=== PATIENT | female | born 1940 | race Caucasian/White ===

== ENCOUNTER 2016-11-22 14:22 | Emergency (ER) | payer MEDICARE, OTHER ==
[~2016-11-22] VITALS: Ht 162.6 cm; Wt 49.1 kg
[2016-11-22 14:23] VITALS: TEMP 98.5
[2016-11-22] MEDS ORDERED: SEROQUEL50 MG PO (15:10)
[2016-11-22] MEDS ORDERED: NEURONTIN100 MG/CAP PO (15:10)
[2016-11-22] MEDS ORDERED: ATIVAN 0.50.5 MG/TAB PO (15:11)
[2016-11-22 15:40] LABS: BASO % 0.5 % (0.0-2.0); EOS # 0.1 (0.0-0.7); EOS % 0.9 % (0-4.0); GRAN # 4.1 (1.4-6.5); GRAN % 73.4 % (42.2-75.2); HEMATOCRIT 38.7 % (37.0-47.0); HEMOGLOBIN 12.9 g/dl (12.5-16.0); LYMPH # 1.1 (1.2-3.4); LYMPH % 19.7 % (20.0-51.0); MEAN CELL VOLUME 88 fl (80.0-100.0); MEAN CORPUSCULAR HEMOGLOBIN 30 pg (27.0-31.0); MEAN CORPUSCULAR HGB CONC 33 g/dl (33.0-37.0); MEAN PLATELET VOLUME 9.1 fl (7.4-10.4); MONO # 0.3 (0.1-0.6); MONO % 5.1 % (1.7-9.3); PLATELET COUNT 224 K/mm3 (130-400); RED BLOOD COUNT 4.38 M/mm3 (4.10-5.30); REDCELL DISTRIBUTION WIDTH-CV 12.7 % (11.5-14.5); WHITE BLOOD COUNT 5.5 K/mm3 (4.8-10.8)
[2016-11-22 15:44] LABS: PH 7 (5-8); SQUAMOUS EPITHELIAL 0-2 /hpf; URINE APPEARANCE Clear; URINE BACTERIA None Seen /hpf; URINE BILIRUBIN Negative (NEGATIVE); URINE BLOOD Negative (NEGATIVE); URINE COLOR Straw; URINE GLUCOSE Negative (NEGATIVE); URINE KETONE Negative (NEGATIVE); URINE RBC None Seen /hpf; URINE UROBILINOGEN Negative (NEGATIVE); URINE WBC 0-2 /hpf
[2016-11-22 15:52] LABS: ALBUMIN 4.2 gm/dL (3.5-5.0); BILIRUBIN,TOTAL 0.4 mg/dL (0.0-1.0); CALCIUM 9.2 mg/dL (8.4-10.2); CREATININE, serum 0.56 mg/dL (0.52-1.25); POTASSIUM 4.2 mmol/L (3.4-5.0); TOTAL PROTEIN 7.3 gm/dL (6.4-8.2)
[2016-11-22] MEDS ORDERED: COGENTIN 1MG1 MG/TAB PO (16:40)
[2016-11-22 17:34] VITALS: BP 126/85; PULSE 84
== END 2016-11-22 17:37 | disposition home or self-care (01) ==
LOC: COL.ER 14:22
PROVIDERS: Emergency Medicine
DX: F41.9 Anxiety disorder, unspecified (principal); R47.1 Dysarthria and anarthria; F32.9 Major depressive disorder, single episode, unspecified
CPT/HCPCS: J7030

== ENCOUNTER 2016-12-21 08:21 | Emergency (ER) | payer MEDICARE, OTHER ==
[~2016-12-21] VITALS: Ht 162.6 cm; Wt 49.1 kg
[~2016-12-21 08:21] MED LIST: ATIVAN 0.50.5 MG/TAB PO; COGENTIN 1MG1 MG/TAB PO; NEURONTIN100 MG/CAP PO; SEROQUEL50 MG PO
[2016-12-21 08:25] VITALS: TEMP 97.1
[2016-12-21 09:07] LABS: BASO % 0.8 % (0.0-2.0); EOS # 0.1 (0.0-0.7); EOS % 1.9 % (0-4.0); HEMATOCRIT 39.3 % (37.0-47.0); HEMOGLOBIN 13.3 g/dl (12.5-16.0); LYMPH # 1.4 (1.2-3.4); LYMPH % 36.7 % (20.0-51.0); MEAN CELL VOLUME 88 fl (80.0-100.0); MEAN CORPUSCULAR HEMOGLOBIN 30 pg (27.0-31.0); MEAN CORPUSCULAR HGB CONC 34 g/dl (33.0-37.0); MEAN PLATELET VOLUME 8.7 fl (7.4-10.4); MONO # 0.3 (0.1-0.6); MONO % 7.3 % (1.7-9.3); PLATELET COUNT 230 K/mm3 (130-400); RED BLOOD COUNT 4.48 M/mm3 (4.10-5.30); REDCELL DISTRIBUTION WIDTH-CV 12.6 % (11.5-14.5); WHITE BLOOD COUNT 3.7 K/mm3 (4.8-10.8)
[2016-12-21 09:33] LABS: ADJUSTED CALCIUM 9.2 mg/dL (8.4-10.2); ALBUMIN 4.2 gm/dL (3.5-5.0); BILIRUBIN,TOTAL 0.7 mg/dL (0.0-1.0); CALCIUM 9.4 mg/dL (8.4-10.2); CREATININE, serum 0.54 mg/dL (0.52-1.25); POTASSIUM 4.2 mmol/L (3.4-5.0); TOTAL PROTEIN 7.1 gm/dL (6.4-8.2)
[2016-12-21 11:11] VITALS: BP 108/67; PULSE 77
[2016-12-21] MEDS ORDERED: VISTARIL 2525 MG/CAP PO (11:20)
[2016-12-21] MEDS ORDERED: KLONOPIN 1MG1 MG PO (11:21)
[2016-12-21] MEDS ORDERED: REMERON 15M15 MG/TA1 PO (11:21)
== END 2016-12-21 11:19 | disposition home or self-care (01) ==
LOC: COL.ER 08:21
PROVIDERS: Emergency Medicine
DX: F41.1 Generalized anxiety disorder (principal); Z90.49 Acquired absence of other specified parts of digestive tract
CPT/HCPCS: J2060; J7040

== ENCOUNTER → 2018-02-21 | Outpatient (REF) ==
[~2018-02-21] MED LIST changes: +KLONOPIN 1MG1 MG PO; +REMERON 15M15 MG/TA1 PO; +VISTARIL 2525 MG/CAP PO
== END ==
LOC: ZLAB.WCH 18:26
DX: Z01.89 Encounter for other specified special examinations (principal)

== ENCOUNTER → 2019-10-25 | Outpatient (CLI) | payer MEDICARE, OTHER | LOC: BHSO 12:28 | DX: F33.3 Major depressive disorder, recurrent, severe with psychotic symptoms (principal) ==

== ENCOUNTER → 2019-11-23 | Outpatient (CLI) | payer MEDICARE, OTHER | LOC: BHSO 13:21 | DX: F25.8 Other schizoaffective disorders (principal) | CPT/HCPCS: G0463 ==

== ENCOUNTER 2021-08-25 05:28 | Day surgery (SDC) | payer MEDICARE, OTHER ==
[~2021-08-25] VITALS: Ht 162.6 cm; Wt 90.9 kg
[2021-08-25] VITALS (16 sets, daily range): BP systolic 116–182; BP diastolic 46–85; PULSE 73–88; TEMP 97–98.7
[2021-08-25] MEDS ORDERED: [UNRECOGNIZED DRUG - OTHER] PO (05:48)
--- NOTE | 2021-08-25 10:42 | NUR ---
Pt to floor from PACU. report from Flavia RN at 1015 at bedside. Pt arrives resting supine with hob 30deg. pt is alert and oriented, pwd with reg and unlabored respirations. LR infusing at approx 100 cc/hour to 18g iv in left hand. Pt c/o pain to mid abdomen. difficult to rate pain on 0-10 scale, but pt does accept offer of ordered oxycodone. Pt and updated on poc including SCDs, incentive spirometry, available medications for pain and nausea, liquid diet order... Also oriented pt and to room, call light.
--- NOTE | 2021-08-25 14:47 | NUR ---
Pt has been recovering well. Pt was able to sit up at edge of bed with minimal assistance, stand at bs and ambulate in room with steady gait. Pt settled into recliner, eating from full liquid diet. pt has been belching especially after getting up, bt active. no complaints of pain at this time.
--- NOTE | 2021-08-25 16:21 | NUR ---
PT back to bed at this time, able to transfer from wheelchair independently. Pt reports mild abd pain 2-4/10, states is tolerable at this time. SCD's on bilat. Pt looking over menu for dinner options. pt encouraged to perform incentive spirometry and demonstrated use of spirometer. Pt informed she should be doing this every hour.
--- NOTE | 2021-08-25 17:18 | NUR ---
pt resting comfortably in bed at this time. SCDs are on bilat. Pt was given opportunity to brush teeth, dinner has been ordered. bs report given to Zora DARLING.
--- NOTE | 2021-08-25 17:22 | NUR ---
bedside report received from LISSET Montes
[2021-08-25] MEDS ORDERED: digestive enzymes PO (17:23)
--- NOTE | 2021-08-25 18:26 | NUR ---
had supper tolerated well, medicated with scheduled tylenol and toradol
--- NOTE | 2021-08-25 18:50 | NUR ---
bedside shift report given to LISSET Thibodeaux
[2021-08-26 00:30] VITALS: BP 146/67; PULSE 85; TEMP 98.5
--- NOTE | 2021-08-26 03:23 | NUR ---
Pt has had an uneventful shift. Tolerating PO meds well. Pt has no complaints of pain abd has been resting quietly in bed for a majority of the shift. Pt was up once with PCT and ambulated throughout the unit, gait was steady and pt showed no signs of weakness. All other needs met at this time, call light within reach.
[2021-08-26 04:14] VITALS: BP 150/77; PULSE 98; TEMP 98
--- NOTE | 2021-08-26 07:34 | NUR ---
Pt doing okay this morning. Dr Ahmadi has been in to see pt. Pt appears to be sleepy, not very talkative. Trimble catheter removed per order and INT IV fluids. Pt reports that she cannot rate her pain as she hardly has any. Educated pt on the plan for the day. Instructed her to ring call light when she needs to use the restroom and that we would have her get up and ambulate in the halls this morning. Offered to order breakfast, but pt states that she is not hungry. Call light within reach, will continue to monitor
[2021-08-26 07:45] VITALS: BP 146/67; PULSE 78; TEMP 97.3
--- NOTE | 2021-08-26 09:30 | NUR ---
Went in to check on pt. Pt continues to state that she is not hungry and does not have any complaints of any pain. Asked pt about using the restroom and then stated I would assist her to go for a walk. Assisted pt in to the bathroom in which she did void without difficulty. Pt then stated that she was going to go back to bed. Reminded her that I was going to have her go for a walk in the terry. Walked with her and tried to make conversation with her. Pt continues with short answers, Yes and No if possible. Asked her if she lives around here and she stated no. Then asked her where she lived. Pt stated [place], [place]. I was unaware of her place of residence. Asked if her stayed in a hotel and she then stated no. Asked who brought her for surgery and she stated . I asked if she had family in town that he stayed with and again stated no. Guided pt on the walk in which she did well. Once she was back in her room, she started to lift up her left leg to get in to bed before sitting down and almost fell. Asked pt if she was feeling okay and again, only said "yes". Pt demographics show that she lives in [place], [place]
--- NOTE | 2021-08-26 10:53 | NUR ---
[place]: Shinto Situation: Lumber Racker stopped by on rounds Background: PT was sleepy and resting Assessment: PT prayed the rosary with the leadership program intern Recommendation: leadership program intern will follow up as needed
[2021-08-26 12:00] VITALS: BP 129/63; PULSE 77; TEMP 97.8
--- NOTE | 2021-08-26 12:56 | NUR ---
caisson worker met with patient to complete intake and discuss discharge plan. Patient's Stephanie ([phone]) present at bedside. Patient reports that she lives at home with her in [facility]. She is mostly independent with her ADL's but does endorse that her helps with things like showering and getting dressed. Patient denies any use of DME to assist with mobility. She has no home oxygen needs. PCP is and she utilizes [facility] pharmacy for medications with no cost difficulty. Patient does have a DPOA-HC established listing her as her agent. A copy can be found in her EMR. Patient is planning on returning home with her once medically ready. Discharge plan: Home with spouse
--- NOTE | 2021-08-26 15:52 | NUR ---
Reviewed discharge instructions with pt and her . Discussed activity restrictions as well as pain management and incisional care. INT removed from left wrist. Pt did go to the restroom right away and IV site did start bleeding. Stopped bleeding and new gauze dressing applied. PCT in with pt to assist with getting her dressed.
== END 2021-08-26 16:14 | disposition home or self-care (01) ==
LOC: SDCO 05:28 → SURG 10:15 → SDCO 08-26 16:14
DX: N99.3 Prolapse of vaginal vault after hysterectomy (principal); F32.A Depression, unspecified; Z86.16 Personal history of COVID-19; Z28.310 Unvaccinated for COVID-19; Z28.9 Immunization not carried out for unspecified reason
CPT/HCPCS: OP; A4314; A9284; C1781; J0330; J0690; J1100; J1885; J2270; J2405; J2704; J3010; J7120

== ENCOUNTER 2021-11-07 17:48 | Inpatient (IN) | payer MEDICARE, OTHER ==
[~2021-11-07] VITALS: Ht 165.1 cm; Wt 92.1 kg
[~2021-11-07 17:48] MED LIST changes: +[UNRECOGNIZED DRUG - OTHER] PO; +digestive enzymes PO
[2021-11-07 19:47] LABS: BASO # 0.1 K/mm3 (0.0-0.2); BASO % 0.5 % (0.0-2.0); EOS % 0.4 % (0.0-4.0); GRAN % 85.3 % (42.2-75.2); HEMATOCRIT 37.2 % (37.0-47.0); HEMOGLOBIN 12.5 g/dl (12.5-16.0); LYMPH # 0.7 K/mm3 (1.2-3.4); LYMPH % 7.5 % (20.0-51.0); MEAN CELL VOLUME 88 fl (80.0-100.0); MEAN CORPUSCULAR HEMOGLOBIN 30 pg (27-31); MEAN CORPUSCULAR HGB CONC 34 g/dl (33.0-37.0); MONO # 0.6 K/mm3 (0.1-0.6); MONO % 5.9 % (1.7-9.3); PLATELET COUNT 279 K/mm3 (130-400); RED BLOOD COUNT 4.23 M/mm3 (4.10-5.30); REDCELL DISTRIBUTION WIDTH-CV 12.9 % (11.5-14.5)
[2021-11-07 20:05] LABS: ALANINE AMINOTRANSFERASE 26 U/L (0-55); ALBUMIN 3.7 gm/dL (3.4-4.8); ALKALINE PHOSPHATASE 69 U/L (40-150); AST,SGOT 27 U/L (5-34); BILIRUBIN,TOTAL 0.4 mg/dL (0.2-1.2); BLOOD UREA NITROGEN 12 mg/dL (10-20); CALCIUM 9.3 mg/dL (8.4-10.2); CARBON DIOXIDE 21 mmol/L (23-31); CREATININE, serum 0.67 mg/dL (0.57-1.11); GLUCOSE 120 mg/dL (70-99); TOTAL PROTEIN 6.8 gm/dL (6.2-8.1)
[2021-11-07 20:11] LABS: CHLORIDE 99 mmol/L (98-107); POTASSIUM 3.9 mmol/L (3.5-4.5); SODIUM 132 mmol/L (136-145)
[2021-11-07 20:14] LABS: COLLECTION METHOD IN
[2021-11-07 20:21] LABS: INR 1.1 (0.8-3.0); PROTHROMBIN TIME 12.6 SECONDS (9.7-12.8)
[2021-11-07 20:24] LABS: PH 6 (5-8); SQUAMOUS EPITHELIAL 0-2 /hpf (0-10); URINE APPEARANCE Hazy (CLEAR/HAZY); URINE BACTERIA Rare /hpf (NONE SEEN); URINE BLOOD Negative (NEGATIVE); URINE COLOR Yellow (YELLOW); URINE GLUCOSE Negative (NEGATIVE); URINE KETONE Trace (NEGATIVE); URINE NITRATE Positive (NEGATIVE); URINE PROTEIN(semi-quant) Negative (NEGATIVE); URINE UROBILINOGEN Negative (NEGATIVE)
[2021-11-07 20:33] LABS: ANION GAP 14 mmol/L (7-16)
[2021-11-07 21:35] LABS: TROPONIN-I < 0.010 ng/mL (0.00-0.033)
[2021-11-07 22:00] VITALS: BP 140/59; PULSE 91; TEMP 98.5
--- NOTE | 2021-11-07 23:34 | NUR ---
PT ADMIT TO FLOOR FOR LT HIP- FX. AOX3. FORGETFUL AND WILL REPEAT SELF. C/O PAIN BUT DOES NOT WANT TO TAKE PAIN MED UPON ARRIVAL. ONCE SITUATED CALM AND ATE MEAL. NPO AT 12 FOR SURG IN AM. 0800- CONSENTED. ICE TO HIP. CALL LIGHT WI REACH. ROOM ORIENTATION.
[2021-11-08] VITALS (13 sets, daily range): BP systolic 114–142; BP diastolic 44–77; PULSE 53–93; TEMP 97.4–98.7
[2021-11-08 06:26] LABS: BASO % 0.3 % (0.0-2.0); EOS % 0.1 % (0.0-4.0); GRAN # 6.2 K/mm3 (1.4-6.5); GRAN % 81.2 % (42.2-75.2); HEMOGLOBIN 10.9 g/dl (12.5-16.0); LYMPH # 0.9 K/mm3 (1.2-3.4); LYMPH % 11.6 % (20.0-51.0); MEAN CELL VOLUME 90 fl (80.0-100.0); MEAN CORPUSCULAR HEMOGLOBIN 30 pg (27-31); MEAN CORPUSCULAR HGB CONC 33 g/dl (33.0-37.0); MEAN PLATELET VOLUME 9.7 fl (7.4-10.4); MONO # 0.5 K/mm3 (0.1-0.6); MONO % 6.4 % (1.7-9.3); PLATELET COUNT 256 K/mm3 (130-400); RED BLOOD COUNT 3.69 M/mm3 (4.10-5.30); REDCELL DISTRIBUTION WIDTH-CV 12.9 % (11.5-14.5)
[2021-11-08 06:37] LABS: HEMATOCRIT 33.2 % (37.0-47.0)
--- NOTE | 2021-11-08 07:36 | NUR ---
PATIENT ALERT TO SELF. VSS. PATIENT REPORTS PAIN 10/10, REFUSES PAIN MEDICATION. ICE TO LEFT HIP. ASSESSMENT PERFORMED. CALL LIGHT WITHIN REACH.
--- NOTE | 2021-11-08 07:36 | NUR ---
PATIENT OFF OF FLOOR FOR SURGERY
--- NOTE | 2021-11-08 11:07 | NUR ---
10:38: Chief School Finance Officer notes patient has just returned to room from surgery and nursing at bedside. Chief School Finance Officer holding for intake assessment/discharge planning for surgical recovery. Will re-assess.
--- NOTE | 2021-11-08 15:02 | NUR ---
PATIENT OFFERED PAIN MEDICATION, TYLENOL AND OTHER MEDICATIONS LISTED. PATIENT REFUSED FOR FEAR OF ADDICTION TO MEDS.
--- NOTE | 2021-11-09 00:10 | NUR ---
PATIENT IN BED. ALERT AND PARTIALLY ORIENTED. SOME CONFUSION NOTED DURING CONVERSATION. L HIP X3 SITES CDI WITH GAUZE AND TEGADERM. PATIENT STATES SHE HAS MILD PAIN BUT DENIES ALL PAIN MEDICAITON OFFERED. MADDEN TO DD WITH CLEAR YELLOW OUTPUT. ICE REMAINS IN PLACE TO L HIP. IVF INFUSING WITH INT ABX ORDERED. PATIENT STATED SHE NEEDED TO HAVE BM AND WANTED TO GET TO THE COMMODE, X2 ASSIST TO BEDSIDE COMMODE AND PATIENT PASSED SOME GAS. PATIENT ASSISTED BACK TO BED WITH X2 ASSIST AND AGAIN WAS DENYING PAIN MEDICATION.
[2021-11-09 03:28] VITALS: BP 134/55; PULSE 84; TEMP 97.8
[2021-11-09 07:11] LABS: HEMATOCRIT 27.4 % (37.0-47.0); HEMOGLOBIN 9.1 g/dl (12.5-16.0)
[2021-11-09 07:29] LABS: CALCIUM 8.1 mg/dL (8.4-10.2); CREATININE, serum 0.58 mg/dL (0.57-1.11); POTASSIUM 4.2 mmol/L (3.5-4.5)
[2021-11-09 08:00] VITALS: BP 125/60; PULSE 76; TEMP 98.3
--- NOTE | 2021-11-09 08:08 | NUR ---
PT RESTING IN BED. DR NORMAN IN TO SEE PT PLAN ON PLACEMENT AFTER THERAPY WORKS WITH PATIENT THIS AM. PT LIVES AT HOME WITH PER PT REPORT.
--- NOTE | 2021-11-09 10:41 | NUR ---
Initial visit; Firearms Instructor introduced herself and wished patient well while letting her know of the availability of Spiritual Care. Patient declined but was very kind.
--- NOTE | 2021-11-09 11:27 | NUR ---
billet worker met with patient to complete intake and discuss discharge plan. Patient reports that she lives at home in [facility] with her Stephanie ([phone]). She is independent with her ADL's and does not utilize any DME to assist with mobility. Patient does not have any home oxygen needs. PCP is Dr. Springer and she utilizes [facility] pharmacy for prescriptions. Patient states that she "thinks" she has a DPOA-HC established listing her as her agent. SW spoke with the patient about the need for post acute rehab. Patient verbalized that she doesn't want to go into a ch[facility] because "they have covid". SW discussed [facility] vs. [facility]. Patient's first choice would be [facility] and [facility] second. Referrals placed for both [facility] and [facility]. Discharge plan: [facility] vs. [facility]
[2021-11-09 12:00] VITALS: BP 145/46; PULSE 84; TEMP 98.3
[2021-11-09] MEDS ORDERED: VITAMIN C500 MG PO (16:50)
[2021-11-09] MEDS ORDERED: OSCAL 500 TAB500 MG PO (16:50)
[2021-11-09] MEDS ORDERED: DUO-KAPS1 CAP PO (16:50)
[2021-11-09] MEDS ORDERED: ASPI325T6 PO (16:50)
[2021-11-09] MEDS ORDERED: TYLENOL 500MG500 MG PO (16:52)
[2021-11-09] MEDS ORDERED: CEFTIN 250250 MG/TAB PO (16:52)
[2021-11-09 17:22] VITALS: BP 136/52; PULSE 81; TEMP 98.2
[2021-11-09 19:40] VITALS: BP 124/50; PULSE 79; TEMP 99.2
--- NOTE | 2021-11-09 22:00 | NUR ---
PT INCONTINENT OF LARGE AMOUNT OF URINE, REORIENTED TO CALL LIGHT. LINENS CHANGED AND ANA LILIA CARES GIVEN. ENCOURAGED PT TO TAKE SCHEDULED ES TYLENOL FOR LEFT HIP PAIN, PT TURNS SIDE TO SIDE GROANING IN PAIN. LEFT HIP WITH 3 SMALL INCISIONS D/I. PLACED SCDS ON PT. TAKES HS MEDS INCLUDING TYLENOL.
[2021-11-09 23:48] VITALS: BP 121/53; PULSE 78; TEMP 98.5
[2021-11-10 03:40] VITALS: BP 123/62; PULSE 80; TEMP 98.1
--- NOTE | 2021-11-10 04:56 | NUR ---
PT HAS BEEN USING BEDPAN THIS SHIFT, NO FURTHER INCONTINENT EPISODES.
[2021-11-10 06:36] LABS: HEMATOCRIT 27.4 % (37.0-47.0); HEMOGLOBIN 8.8 g/dl (12.5-16.0)
[2021-11-10 07:05] VITALS: BP 143/66; PULSE 86; TEMP 98.1
--- NOTE | 2021-11-10 08:00 | NUR ---
PT A&OX3 RESTING IN BED. AM MEDS GIVEN AND ASSESSMENT COMPLETED. PT DENIES PAIN. SCDS T0 BLE. VS STABLE AND TELE IN PLACE. BREAKFAST AT SIDE TABLE AND PT REFUSING TO EAT. NO OTHER NEEDS AT THIS TIME. CALL LIGHT WITHIN REACH.
--- NOTE | 2021-11-10 08:27 | NUR ---
Notified by Nicky with [facility] that they accept this patient for admission today
--- NOTE | 2021-11-10 09:41 | NUR ---
Notified patient of acceptance to [facility] and that the transition will happen later on today.
--- NOTE | 2021-11-10 10:00 | NUR ---
LT HIP TEGADERM DRESSING REMOVED PER PA REQUEST. INCISIONS ARE CDI. PT DENIES PN.
--- NOTE | 2021-11-10 10:22 | NUR ---
PT TRANSFERED TO [facility] ROOM 336. RT AC INT AND TELE DISCONTINUED.
[2021-11-10] MEDS ORDERED: CELEBREX 200MG200 MG PO (10:37)
[2021-11-10] MEDS ORDERED: SENOKOT S 50 MG1 TAB PO (10:39)
[2021-11-10] MEDS ORDERED: ROXICODONE 55 MG/TAB PO (10:40)
[2021-11-10] MEDS ORDERED: ULTRAM 50MG TAB50 MG PO (10:40)
[2021-11-10] MEDS ORDERED: MELATIN 3 MG-11 TAB PO (10:41)
== END 2021-11-10 10:20 | DRG 481 ==
LOC: COL.ER 17:48 → SURG 20:23
PROVIDERS: Nurse Practitioner; Nurse Practitioner Family; Orthopaedic Surgery; Physician Assistant; ADMIT Student in an Organized Health Care Education/Training Program
PROC: 0QS706Z Reposition Left Upper Femur with Intramedullary Internal Fixation Device, Open Approach (ICD-10-PCS; principal; 2021-11-08 08:00)
DX: S72.142A Displaced intertrochanteric fracture of left femur, initial encounter for closed fracture (principal); E87.1 Hypo-osmolality and hyponatremia; N39.0 Urinary tract infection, site not specified; E87.2 Acidosis; K62.5 Hemorrhage of anus and rectum; Z66 Do not resuscitate; W01.0XXA Fall on same level from slipping, tripping and stumbling without subsequent striking against object, initial encounter; R19.7 Diarrhea, unspecified; F03.90 Unspecified dementia, unspecified severity, without behavioral disturbance, psychotic disturbance, mood disturbance, and anxiety; F41.9 Anxiety disorder, unspecified; F32.A Depression, unspecified; B96.20 Unspecified Escherichia coli [E. coli] as the cause of diseases classified elsewhere; K44.9 Diaphragmatic hernia without obstruction or gangrene; R73.9 Hyperglycemia, unspecified; Z90.710 Acquired absence of both cervix and uterus; Z91.51 Personal history of suicidal behavior; Z90.49 Acquired absence of other specified parts of digestive tract; Z72.89 Other problems related to lifestyle; Y92.096 Garden or yard of other non-institutional residence as the place of occurrence of the external cause; Y93.89 Activity, other specified
CPT/HCPCS: A4314; A9284; C1713; C1769; J0690; J0696; J1100; J1170; J1885; J2270; J2405; J2704; J3010; J7030; J7042

== ENCOUNTER 2021-11-10 10:15 | Inpatient (IN) | payer MEDICARE, OTHER ==
[~2021-11-10] VITALS: Ht 165.1 cm; Wt 92.8 kg
[~2021-11-10 10:15] MED LIST changes: +ASPI325T6 PO; +CEFTIN 250250 MG/TAB PO; +DUO-KAPS1 CAP PO; +OSCAL 500 TAB500 MG PO; +TYLENOL 500MG500 MG PO; +VITAMIN C500 MG PO
[2021-11-10] MEDS ORDERED: CELEBREX 200MG200 MG PO (10:37)
[2021-11-10] MEDS ORDERED: SENOKOT S 50 MG1 TAB PO (10:39)
--- NOTE | 2021-11-10 10:39 | NUR ---
PATIENT WAS TRANSWER FROM SURGICAL ROOM 325 TO [facility] ROOM 336 AT 1015AM. PATIENT IS ALERT X 3 WITH NO SLIGHT MEMORY ISSUE. PATIENT REFUSED MEDICATION AND STATED SHE WOULD LIKE TO USE JUST TYLENOL AT THIS TIME. RECEIVED REPORT THAT PATIENT IS A 2 PERSON ASSISTANCE. NO SKIN ISSUE ISSUE. BUT DID NOTICES THREE SMALL AREA WHERE INSICION WAS DONE. CLEAN AND ATTACK. NO DRAINAGED NOTED. NO EDEMA NOTED. LUNG SOUND CLEAR IN ALL LOBES. BOWEL SOUND ACTIVE IN ALL 4 QUADS.CALL LIGHT IN REACH.
[2021-11-10] MEDS ORDERED: ROXICODONE 55 MG/TAB PO (10:40)
[2021-11-10] MEDS ORDERED: ULTRAM 50MG TAB50 MG PO (10:40)
[2021-11-10] MEDS ORDERED: MELATIN 3 MG-11 TAB PO (10:41)
[2021-11-10 17:08] VITALS: BP 128/44; PULSE 78; TEMP 98.5
[2021-11-10 17:11] VITALS: BP 123/83; PULSE 98; TEMP 97.8
[2021-11-10 18:10] VITALS: BP 123/83; PULSE 98; TEMP 98
--- NOTE | 2021-11-10 19:16 | NUR ---
PATIENT HAS BEEN IN BED FOR A WHILE. PAIN HAS BEEN CONTROL WITH NORCO. INFORM NIGHT NURSE DELGADO THAT PATIENT IS INCONTINENT AND URINATED IN BED. LINEN WAS STRIP AND CHANGE. 2 HOUR BATHROOM CHECK FOR HER UNTIL SHE IS ABLE TO LET US KNOW THAT SHE NEED TO USE THE RESTROOM. PATIENT DID INFORM THAT SHE WAS HAVING ISSUE BEFORE AND WAS USING BRIEFS BUT IT WASN'T BAD NOW.
--- NOTE | 2021-11-10 19:53 | NUR ---
RECEIVED CHANGE OF SHIFT REPORT FROM DAY SHIFT RN. PATIENT RESTING IN BED, EXIT ALARM ON WITH CALL LIGHT WITHIN REACH.
--- NOTE | 2021-11-10 22:35 | NUR ---
DENIES NEEDS TO USE BSC/BATHROOM/URGE TO VOID. REPORTS BRIEFS ARE DRY. REPORTS DOES NOT NEED TO GET UP OUT OF BED AT THIS TIME. EXIT ALARM ON, CALL LIGHT WITHIN REACH.
[2021-11-11 04:45] VITALS: BP 151/55; PULSE 85; TEMP 98
--- NOTE | 2021-11-11 06:54 | NUR ---
Shift report received from shift boss RN
--- NOTE | 2021-11-11 06:58 | NUR ---
CHANGE OF SHIFT REPORT GIVEN TO DAY SHIFT RNTARA.
--- NOTE | 2021-11-11 10:02 | NUR ---
Initial visit; Patient and her thanked Railway Signal Electrician for looking in on Edith and offering God's blessings and a thorough and rapid healing. Patient said today is better than yesterday and seemed somewhat relaxed and smiling.
--- NOTE | 2021-11-11 11:34 | NUR ---
Pt off unit to work with PT
--- NOTE | 2021-11-11 16:34 | NUR ---
Patient new to [facility]. SW follows patient care from her surgery. Patient is and lives at home with her Stephanie ([phone]). Patient reports to being indpenedent with her ADL's prior to fall. She does not utilize any DME regulary to assist with mobility but does have access to a cane and a walker. Patient does not utilize oxygen. She see's Dr. Springer for PCP care and she gets her mediations through [facility]. Patient appears to be adapting well to therapy per documentation. Patient has a history of anxiety and depression with previous SI attempts. POssible barriers addressed during team meeting is the patient's pain level ,the stairs in her home as well as her dementia.
[2021-11-11 16:54] VITALS: BP 164/65; PULSE 93; TEMP 98.7
[2021-11-12 05:20] VITALS: BP 122/51; PULSE 79; TEMP 98.3
--- NOTE | 2021-11-12 06:07 | NUR ---
no c/o pain this shift, very anxious about not having had a bm since prior to surgery, prn Senna dose given @[facility], miralax and prune juice given this am, pt stated she does not want to eat until she has results. purwick in place during the noc d/t urinary incontinence.
[2021-11-12 11:27] LABS: BASO % 0.3 % (0.0-2.0); EOS # 0.2 K/mm3 (0.0-0.7); EOS % 3.9 % (0.0-4.0); GRAN # 4.6 K/mm3 (1.4-6.5); GRAN % 74.3 % (42.2-75.2); LYMPH # 0.8 K/mm3 (1.2-3.4); LYMPH % 12.3 % (20.0-51.0); MEAN CELL VOLUME 91 fl (80.0-100.0); MEAN CORPUSCULAR HGB CONC 33 g/dl (33.0-37.0); MEAN PLATELET VOLUME 9.7 fl (7.4-10.4); MONO # 0.5 K/mm3 (0.1-0.6); MONO % 8.1 % (1.7-9.3); PLATELET COUNT 255 K/mm3 (130-400); RED BLOOD COUNT 3.01 M/mm3 (4.10-5.30); REDCELL DISTRIBUTION WIDTH-CV 13.6 % (11.5-14.5)
[2021-11-12 11:28] LABS: HEMATOCRIT 27.5 % (37.0-47.0); MEAN CORPUSCULAR HEMOGLOBIN 30 pg (27-31)
[2021-11-12 11:43] LABS: ALBUMIN 2.7 gm/dL (3.4-4.8); BILIRUBIN,TOTAL 0.8 mg/dL (0.2-1.2); CALCIUM 8.6 mg/dL (8.4-10.2); CREATININE, serum 0.6 mg/dL (0.57-1.11); POTASSIUM 4.1 mmol/L (3.5-4.5); TOTAL PROTEIN 5.9 gm/dL (6.2-8.1)
--- NOTE | 2021-11-12 14:34 | NUR ---
telecommunications linesworker met with patient to present with Team Conference notes. Patient's Stephanie present at bedside. Notes reviewed verbally with the patient and Stephanie. Stephanie confirms that there is only 1 step to get into the home. All other questions answered. Informed that that we are planning to do a reeval next week and will set a discharge date at that time.
[2021-11-12 17:23] VITALS: BP 161/71; PULSE 108; TEMP 98.1
--- NOTE | 2021-11-12 19:15 | NUR ---
PT UP IN RECLINER. YELLING PROFANITIES. KEEPS EYES CLOSED. AT BED SIDE. EARLIER PT THREW FORK WITH FOOD TOWARD HUSBUND. PT VERY AGITATED. NOTIFIED ALICIA GÓMEZ DIRECTOR OF LAND ACQUISITION. NEW ORDER FOR ATIVAN 0.25MG PO. 2:1 ASSISTED PT TO BED. NON COMPLIANT WITH CARES. CALL LIGHT IN REACH. BED ALARM SET. ALLOWED PT TO SETTLE. LEAVING.
--- NOTE | 2021-11-12 20:00 | NUR ---
PT IN BED. PT COMPLIANT NOW WITH TAKING PILLS. SEE MAR FOR ATIVAN AND NORCO GIVEN,
--- NOTE | 2021-11-12 20:30 | NUR ---
PT AWAKE YELLING OUT. WANTS . REASSURED PT HE WOULD BE BACK TOMORROW.
--- NOTE | 2021-11-12 22:11 | NUR ---
PT SLEEPING. NO DISTRESS.
--- NOTE | 2021-11-13 00:31 | NUR ---
PT AWAKE BUT CALM ND COOPERATIVE. PT INCONTINENT OF BOWEL AND BLADDER. CLEANED PT UP. REPOSITIONED. PT RETURNED TO SLEEP.
--- NOTE | 2021-11-13 05:01 | NUR ---
PT AWAKE. YELLING OUT. WANTING COFFEE. PT STICKS TONGUE OUT. ASKED PT WHY SHE IS STICKING OUT HER TONGUE SHE REPLIED "I DONT KNOW".
[2021-11-13 05:35] VITALS: BP 133/58; PULSE 92; TEMP 98.8
--- NOTE | 2021-11-13 06:54 | NUR ---
PT AWAKE AND CALM AT THIS TIME. PT INCONTINENT OF URINE AND STOOL. CHANGED AND CLEANED BY X2 STAFF. PT COOPERATIVE. CALL LIGHT IN REACH. BED ALARM SET.
--- NOTE | 2021-11-13 15:36 | NUR ---
Admission QIM scores were reviewed by the team. Code of 4 chosen for eating was determined by team discussion to be the most usual performance before interventions for this patient during the assessment period. Code of 3 chosen for toilet hygiene was determined by team discussion to be the most usual performance before interventions for this patient during the assessment period. Code of 2 chosen for lower body dressing was determined by team discussion to be the most usual performance before interventions for this patient during the assessment period. Code of 2 chosen for sit to lying was determined by team discussion to be the most usual performance before interventions for this patient during the assessment period. Code of 3 chosen for lying to sitting on side of bed was determined by team discussion to be the most usual performance before interventions for this patient during the assessment period. Code of 3 chosen for sit to stand was determined by team discussion to be the most usual performance before interventions for this patient during the assessment period. Code of 3 chosen for chair/bed to chair transfer was determined by team discussion to be the most usual performance before interventions for this patient during the assessment period. Code of 4 chosen for walk 10 feet was determined by team discussion to be the most usual performance for this patient during the discharge assessment period.--Renetta BARBOSA
[2021-11-13 17:56] VITALS: BP 123/53; PULSE 84; TEMP 98.5
--- NOTE | 2021-11-13 20:00 | NUR ---
PT USED CALL LIGHT FOR ASSIST. PT SITTING IN RECLINER. NEED TO VOID. ASSIST WITH WALKER. INCONT URINE. CHANGED BRIEF. PT CALM,COOPERATIVE AND APPRECIATIVE OF CARES. PT CHANGED INTO NIGHT CLOTHES BUT WANTS TO SIT UP IN RECLINER SOME MORE. CHAIR ALARM SET. CALL LIGHT IN REACH.
[2021-11-14 05:17] VITALS: BP 121/48; PULSE 83; TEMP 98.3
--- NOTE | 2021-11-14 06:47 | NUR ---
Shift report received from plant operator/shift supervisor RN
--- NOTE | 2021-11-14 08:46 | NUR ---
Pt off the unit for PT/OT and Group Therapy
--- NOTE | 2021-11-14 08:57 | NUR ---
Pt off the unit to work with PT/OT and Group Therapy
--- NOTE | 2021-11-14 11:24 | NUR ---
Pt back in room after Group Therapy. Pt. assisted to toilet using gait belt and FWW. CGA provided. She denies pain/discomfort. Reports "having fun" in therapy today. Pt. assisted to recliner. BLE elevated on foot rest. Chair alarm is on. Call light is within her reach. Pt. denies further needs at this time
[2021-11-14 17:08] VITALS: BP 133/55; PULSE 90; TEMP 98.3
--- NOTE | 2021-11-14 17:11 | NUR ---
Pt sitting up in recliner having dinner with her . BLE elevated on footrest. She denies pain/discomfort. Denies additional needs. Call light is within her reach
--- NOTE | 2021-11-14 17:38 | NUR ---
This nurse went to assess pt for toileting needs. Pt. verbalized needing to go to the bathroom. Pt. noted to be incontinent of urine. Pt. assisted to toilet. Toileting hygiene performed. Clean gown given. Pt. assisted back to recliner at her request. remains in the room to visit. Pt. denies further needs at this time. Call light is within her reach. Chair alarm is on
--- NOTE | 2021-11-14 19:07 | NUR ---
Pt turned on the call light for assistance to the bathroom. Pt. assisted to the toilet using CGA and FWW. Pt. was continent of urine. Pt assisted to bed after toileting. She denies pain/discomfort. Denies additional needs. Call light is within her reach. Bed alarm is on
--- NOTE | 2021-11-14 21:01 | NUR ---
PT RESTING IN BED. ALERT BUT SL DISORIENTED. ALITTLE AGITATED. READY FOR BED. SEE MAR FOR PAIN MED GIVEN. CALL LIGHT IN REACH. BED ALARM SET.
--- NOTE | 2021-11-15 01:10 | NUR ---
PT USED CALL LIGHT FOR ASSIST TO BR. USING POOR SAFETY JUDGEMENT. NEEDS CUING FOR SAFETY. INCONTINENT IN BRIEFS. PT BACK IN BED. ABLE TO LIFT LEGS INTO BED PER SELF. CALL LIGHT IN REACH. BED ALARM SET.
[2021-11-15 06:05] VITALS: BP 146/63; PULSE 94; TEMP 98.6
--- NOTE | 2021-11-15 06:47 | NUR ---
Shift report received from straight tooth gear generator operator RN
--- NOTE | 2021-11-15 09:24 | NUR ---
Pt assisted to toilet using FWW and gait belt then assisted back to bed at her request. . Gait was steady. No episodes of urine incontinence through this shift so far. Pt. denies pain/discomfort. She would like to "rest as much as she can today" since there is no scheduled PT/OT. Call light is within her reach. Bed alarm is turned on
--- NOTE | 2021-11-15 10:30 | NUR ---
Pt assisted to the toilet using SBA, FWW, gait belt. Pt. assisted to recliner after toileting. BLE elevated on footrest and pillow. in the room to visit. Pt. denies further needs. Call light is within her reach. Chair alarm is on
--- NOTE | 2021-11-15 16:19 | NUR ---
Pt assisted to toilet using fww and gait belt. No episodes of urine/bowel incontinence this shift so far. Pt. denies pain/discomfort. Pt assisted back to recliner at her request to finish watching a movie with her . Call light is within her reach. Chair alarm is on
[2021-11-15 16:47] VITALS: BP 157/62; PULSE 87; TEMP 98.1
--- NOTE | 2021-11-15 19:45 | NUR ---
PT USED CALL LIGHT. CALM AND COOPERATIVE. AMB FROM RECLINER TO BR WITH WALKER. ALITTLE UNSTEADY AND HURRIED. NEEDS CUING FOR SAFETY. PT ABLE TO MANAGE TOILETING TASK WITH CUING. TO BED. NEEDED ASSIT LIFTING LEGS UP INTO BED. MOANING C/O LT HIP PAIN. SEE MAR FOR NORCO GIVEN. CALL LIGGHT IN REACH. BED ALARM SET.
[2021-11-16 05:20] VITALS: BP 148/71; PULSE 86; TEMP 98.2
--- NOTE | 2021-11-16 06:48 | NUR ---
Shift report received from night supervisor RN. Pt. awake and lying supine in bed. Pt. reports that she is not ready to "get up". Pt. denies pain/discomfort. Call is within reach. Bed alarm is on
--- NOTE | 2021-11-16 11:59 | NUR ---
Pt resting supine in bed. HOB elevated approx 35 degrees. Pt. has just completed ST. She denies pain/discomfort. Call light is in her reach. Bed alarm is on
--- NOTE | 2021-11-16 14:55 | NUR ---
KAVIN met with the patient and her , Stephanie, to introduce oneself and to follow up after the weekend. The patient states that she is doing fine. KAVIN discussed setting up a patient/family meeting. The patient and her are in agreement to this and the meeting was scheduled for this Tuesday at 0945. KAVIN notified [facility] Director.
--- NOTE | 2021-11-16 15:11 | NUR ---
In review of therapy times for 11/13/21, it was found that the team was 1 minute short of the 180 daily minutes needed. This was an inadvertent error and the time will be made up by ST in her next therapy session, on 11/16/21.
--- NOTE | 2021-11-16 15:51 | NUR ---
Call light and bed alarm sounding. When nurse entered the room, pt was sitting on the toilet and was in the bathroom with the pt. Spoke with pt. and about the importance of waiting for assistance before getting out bed d/t the risk of falling. Spouse v/u. Pt will need further teaching. Pt. assisted back to bed. Call light is within her reach. Bed alarm is turned on
[2021-11-16 17:22] VITALS: BP 157/57; PULSE 103; TEMP 98.9
--- NOTE | 2021-11-16 17:39 | NUR ---
SAMPLE CARRIER reporting urinary frequency. Pt. denies dysuria. Pt. has had at least 1 episode of urine incontinence today. Pt has had at least 1 episode of urgency but had no output. Spoke with Dr. Pina who gave VORB for UA
[2021-11-16 17:59] LABS: COLLECTION METHOD CLEAN CATCH
[2021-11-16 18:08] LABS: MUCOUS Present (NOT PRESENT); URINE BACTERIA None Seen /hpf (NONE SEEN); URINE RBC 0-2 /hpf (0-2)
[2021-11-16 18:20] LABS: URINE APPEARANCE Hazy (CLEAR/HAZY); URINE COLOR Yellow (YELLOW)
[2021-11-16 18:21] LABS: PH 7 (5-8); URINE BLOOD Negative (NEGATIVE); URINE GLUCOSE Negative (NEGATIVE); URINE KETONE Negative (NEGATIVE); URINE NITRATE Negative (NEGATIVE); URINE PROTEIN(semi-quant) Negative (NEGATIVE); URINE UROBILINOGEN Negative (NEGATIVE)
[2021-11-16 18:35] VITALS: TEMP 98.8
[2021-11-17 05:51] VITALS: BP 153/62; PULSE 88; TEMP 98.1
--- NOTE | 2021-11-17 06:55 | NUR ---
BEDSIDE REPORT DONE ORDER. PATIENT RESTING IN BED WITH NO SIGN OF DISTRESS. CALL LIGHT IN REACH
--- NOTE | 2021-11-17 08:06 | NUR ---
ASSESSMENT DONE. PATIENT CONTINUE TO BE ALERT BUT FORGETFULL AND AT TIME UNABLE TO RESPOND TO COMMAND. PATIENT HAS MEMORY ISSUE.PATIENT LUNG CLEAR IN ALL LOBES. BOWEL SOUND ACTIVE IN ALL 4 QUADS. WAS YELLING FOR NURSE TO GET OUT OF BED DUETO SHE HAD TO URINATE BUT INFORM HER TO USE THE CALL LIGHT. SHE STATED SHE HAS TO GO TO THE BATHROOM. PATIENT NEED SLIGHT HELP GETTING UP OUT OF BED. ABLE TO USE THE WALKER AND GAITBELT . PATIENT VOID WITH NO ACCIDENT. INCREASE GAS NOTED. NO BOWEL MOVEMENT TODAY. EDUATED TO USE THE CALL LIGHT WHEN NEEDED THE NURSE. PATIENT UNDABLE TO MOVE OR ELECTRONIC COURT RECORDER LEFT LEG.
--- NOTE | 2021-11-17 13:16 | NUR ---
Follow-up visit; Patient has had stroke and responds in an unfriendly manner but did thank Package Delivery Room Service Runner for looking in on her again, for offering God's blessings, and for wishing her a good day.
[2021-11-17 17:49] VITALS: BP 151/68; PULSE 91; TEMP 98.8
--- NOTE | 2021-11-17 22:47 | NUR ---
PT ANXIOUS UPON ASSESSMENT. OFFERED PRN MELATONIN TO AID IN RESTFUL SLEEP, PT ACCEPTS AND HAS NO FURTHER CONCERNS. PT EDUCATED ON FALL RISK BUNDLE, INCLUDING BED ALARM.
[2021-11-18 05:57] VITALS: BP 137/53; PULSE 90; TEMP 98.1
--- NOTE | 2021-11-18 11:30 | NUR ---
PATIENT CURRENTLY GONE WITH THERAPY
--- NOTE | 2021-11-18 11:38 | NUR ---
INFORMED KENDY VENTURA OF PATIENTS BLADDER URGENCY/FREQUECY. STATED SHE WOULD PAS ON TO NO THAT WILL ROUND ON PATIENT LATER. ALSO ORDERED PVR NEXRT TIME PATIENT VOIDS.
--- NOTE | 2021-11-18 12:55 | NUR ---
PATIENT HAD A LARGE BOWL MOVEMENT. MULTIPLE TIMES SHE ATTEMPTED TO PULL UP HER BRIEF AND SKIRT WITHOUT CLEANING HERSELF. THREE TIMES I CUED HER TO STOP SO THAT I COULD CLEAN HER UP. ONCE PATIENT GOT INTO BED, SHE ASKED IF SHE COULD SHOWER. SO I REMINDED HER SHE HAD A SHOWER THIS MORNIGN WITH OT. MAYBE 3 SECONDS LATER, SHE ASKED JAMIL SAME QUESTION TWICE MORE. PATIENT NOT IN A PLSEANT MOOD AT THIS TIME. PATIENT RESTING IN BED, BED ALARM ON.
--- NOTE | 2021-11-18 13:00 | NUR ---
PVR PERFORMED, UPON MULTIPLE SCANS HIGHEST AMOUNT SHOWN 102CC. AUDREY CANTOR INFORMED AND WILL PASS ON TO TAMMIE BEDOLLA.
--- NOTE | 2021-11-18 15:34 | NUR ---
KAVIN attended the patient/family meeting. The patient's , Stephanie, at bedside. Also present was IPR Director, PT, and OT. IPR Director started by explaining the purpose of the meeting. PT/OT then discussed the patient's progress so far. The team has set a tentative discharge for this Tuesday, 11/20, with home health PT/OT/ST. The patient and her are agreeable to the plan. Stephanie states that they do not have a FWW and would need one. The team answered all questions. KAVIN then followed up with the patient and Stephanie to present and review the IPR Team Conference Note. KAVIN provided them with [email or web address]'s list of home health agencies that serve [place]. Stephanie states that he believes he had [facility] in the past and would prefer them again. Stephanie is also agreeable to getting the FWW from [facility]. KAVIN presented and read the IM form outloud to Stephanie. Stephanie verbalized understanding and signed the form. SW provided him with a copy. KAVIN contacted and faxed a referral to Jesu at [facility]. Awaiting screen.
[2021-11-18 16:19] LABS: MEAN CELL VOLUME 90 fl (80.0-100.0); MEAN CORPUSCULAR HGB CONC 33 g/dl (33.0-37.0); MEAN PLATELET VOLUME 8.5 fl (7.4-10.4); PLATELET COUNT 359 K/mm3 (130-400); RED BLOOD COUNT 3.13 M/mm3 (4.10-5.30); REDCELL DISTRIBUTION WIDTH-CV 14.6 % (11.5-14.5)
[2021-11-18 16:23] LABS: HEMATOCRIT 28.3 % (37.0-47.0); HEMOGLOBIN 9.3 g/dl (12.5-16.0); MEAN CORPUSCULAR HEMOGLOBIN 30 pg (27-31)
[2021-11-18 16:34] LABS: ALBUMIN 2.9 gm/dL (3.4-4.8); CALCIUM 9.1 mg/dL (8.4-10.2); CREATININE, serum 0.57 mg/dL (0.57-1.11); POTASSIUM 4.3 mmol/L (3.5-4.5); TOTAL PROTEIN 6.3 gm/dL (6.2-8.1)
[2021-11-18 17:08] LABS: BAND 1 % (0-10); LYMPHOCYTE 7 % (20.0-51.0); NEUTROPHILS 8 % (42.0-75.2); OVALOCYTES 1+; PLATELET ESTIMATE NORMAL (NORMAL)
[2021-11-18 17:09] LABS: HYPOCHROMIA 1+
--- NOTE | 2021-11-18 17:22 | NUR ---
HEARD YELLING COMING FROM PATIENTS ROOM. UPON ENTERING SHE WAS YELLING AND SHAKING THE SIDE RAIL VIGORIOUSLY SCREAMING "I WANT TO GET UP, LET ME UP!" I ASKED HER CALMLY IF THERE WAS ANYTHING WRONG. SHE SAID NO, SHE JUST WANTS TO SHOWER. IT TOOK MULTILE TIMES BUT I REINFORCED THAT SHE HAD A SHOWER THIS MORNING. EVETUALLY WAS ABLE TO REDIRECT HER, SHE IS NOW RESTING IN BED, BED ALARM ON, EATING DINNER. SHE DID AT FIRST BEGIN TO EAT HER PARKER WITH HER HANDS. HOWEVER I MENTIONED HER FORK AND SHE WAS ABLE TO GRAB IT AND BEGIN USING IT.
--- NOTE | 2021-11-18 18:55 | NUR ---
PATIENTS ASKED FOR US TO PLEASE PUT UP ALL BEDSIDE RAILS THE PATIENT IS NON COMPLIANT AND UNCOOPERATIVE.
--- NOTE | 2021-11-18 19:45 | NUR ---
PT SCREAMING OUT. ASKED WHAT SHE NEEDED AND REPEATEDLY ASKED FOR A SHOWER. INFORMED PT SHE HAD ONE THIS AM. HAD TO REPEAT THIS INFORMATION SEVERAL TIMES. PT CONFUSED. PT RUBBING LT HIP AND MOANING. SEE MAR FOR NORCO GIVEN. CALL LIGHT IN REACH. BED ALARM SET.
--- NOTE | 2021-11-18 22:10 | NUR ---
PT SLEEPING NO DISTRESS AT THIS TIME. CALL LIGHT IN REACH. BED ALARM SET.
--- NOTE | 2021-11-18 22:56 | NUR ---
OBTAINED UA ORDERED AND SENT TO LAB.
[2021-11-18 22:59] LABS: COLLECTION METHOD CLEAN CATCH
[2021-11-18 23:08] LABS: MUCOUS Present (NOT PRESENT); URINE BACTERIA Rare /hpf (NONE SEEN); URINE COLOR Amber (YELLOW); URINE RBC 0-2 /hpf (0-2)
[2021-11-18 23:09] LABS: PH 5 (5-8); URINE APPEARANCE Hazy (CLEAR/HAZY); URINE BLOOD Negative (NEGATIVE); URINE GLUCOSE Negative (NEGATIVE); URINE KETONE Negative (NEGATIVE); URINE NITRATE Negative (NEGATIVE); URINE PROTEIN(semi-quant) Negative (NEGATIVE)
[2021-11-19 05:39] VITALS: BP 145/55; PULSE 85; TEMP 98
--- NOTE | 2021-11-19 05:44 | NUR ---
PT CALM AND COOPERATIVE THIS AM. USED CALL LIGHT TO ASK FOR BR. PT NEEDS MUCH QUEING FOR SAFETY. BACK TO BED. CALL LIGHT IN REACH. BED ALARM SET.
--- NOTE | 2021-11-19 06:46 | NUR ---
BEDSIDE REPORT DONE ORDER. PATIENT RESTING IN BED ASKING FOR WATER. CUE HER WHERE THE WATER WAS AT. PATIENT PICK IT UP AND TOOK A SIP OF IT. NO DESTRESS NOTED
--- NOTE | 2021-11-19 09:06 | NUR ---
ASSESSMENT DONE ORDER. PATIENT CONTINUE TO BE IN BED RESTING. PATIENT ALERT X 3 BUT WITH FORGETFULNESS NOTED. CONTINUE TO NEED CUEING DURNG AM CARE. PATIENT INCONTINENT OF BLADDER. HAD AN ACCIDENT THIS AM WHEN WALKING TO THE BATHROOM. WAS INCONTIENT AND URINE WAS COMING OUT OF THE BRIEF ONTO THE FLOOR. LUNG SOUND CLEAR IN ALL LOBES. BOWEL SOUND ACTIVE IN ALL 4 QUADS. PAIN WAS HIGH THIS MORNING BUT AFTER GIVEN HER PRN PAIN MEDICATION. PAIN DECREASE FROM A 10/10 TO 4/10 ON LEFT LEG.
--- NOTE | 2021-11-19 09:58 | NUR ---
KAVIN obtained the FWW script from the doctor. KAVIN contacted and emailed and faxed the order to [facility].
[2021-11-19 17:02] VITALS: BP 149/70; PULSE 86; TEMP 97.6
--- NOTE | 2021-11-19 20:00 | NUR ---
PT RESTING IN BED. CONCERNED ABOUT RECEIVING [place] TONIGHT. PT STILL HAVING [facility]ENCY AND SOME INCONT. SEE MAR FOR NORCO GIVEN FOR LT HIP PAIN. CALL LIGHT IN REACH. BED ALARM SET.
--- NOTE | 2021-11-19 20:49 | NUR ---
INCONTINENT AT THIS TIME. CHANGED CLOTHING.
[2021-11-20 05:26] VITALS: BP 167/62; PULSE 91; TEMP 98.2
--- NOTE | 2021-11-20 06:43 | NUR ---
BEDSIDE REPORT DONE ORDER. PATIENT IN BED RESTING WTIH NO DISTRESS NOTED. CALL LIGHT IN REACH
[2021-11-20] MEDS ORDERED: ASPI325T6 PO (08:32)
[2021-11-20] MEDS ORDERED: CELEBREX 200MG200 MG PO (08:33)
[2021-11-20] MEDS ORDERED: AZO URINARY PAI95 MG PO (08:34)
[2021-11-20] MEDS ORDERED: NORCO 325 MG-51 TAB PO (08:35)
--- NOTE | 2021-11-20 09:03 | NUR ---
ASSESSMENT DONE ORDER. PATIENT ALERT X 3 FORGETFUL ALOT. NEED QUEING WHEN DURING CARE BUT ABLE TO GET IT DONE. PATIENT LUNG CLEAR IN ALL LOBES. BOWEL SOUND ACTIVE IN ALL 4 QUADS. PATIENT IS DISCHARGING TODAY AND GOING HOME WITH . PATIENT USE WALKER FOR STABILITY DUE TO LEFT LEG PAIN . LAST PAIN MEDICATION WAS LAST NIGHT. PATIENT REFUSED TO EAT BREAKFAST BUT DRANK ALL HER ENSURE.TOOK HER MEDICATION WITH NO ISSUE. CALL LIGHT IN REACH.
--- NOTE | 2021-11-20 09:34 | NUR ---
KAVIN contacted [facility] to follow up about the walker. [facility] reports that they will deliver the walker today, by early afternoon. KAVIN updated the RN.
--- NOTE | 2021-11-20 13:00 | NUR ---
DISCHARGE PAPERWORK WAS DONE ORDER. SIGN THE PAPERWORK SINCE PATIENT COGNITIVE WASN'T GREAT AND SHE WAS HAVING A HARD TIME SIGNING.WHEN OVER ALL INSTRUCTION ABOUT NEW MEDICATION AND FALL RISK(IN [place]) EXPLAIN TO ABOUT UPCOMING APPOINTMENT. PATIENT AND UNDERSTOOD. TOOK PATIENT DOWN VIA ER AND HELP PATIENT IN THE CAR. PATIENT WAS VERY ANXIOUS OF GETTING HOME. EXPLAIN TO [place] TO CALL IF ANY CONCERN OR QUETION.
--- NOTE | 2021-11-20 14:33 | NUR ---
Sorting Grapple Operator contacted [facility] at 1300 and was advised the earliest they can now deliver walker is 1400. SW contacted RN who collaborated with patient's who advised he would prefer to pick it up on the way home. SW provided contact information for [facility]. SW contacted [facility] and faxed discharge orders.
--- NOTE | 2021-11-20 14:40 | NUR ---
Discharge QIM scores were reviewed by the team. Code of 4 chosen for oral hygiene was determined by team discussion to be the most usual performance for this patient during the discharge assessment period. Code of 4 chosen for toilet hygiene was determined by team discussion to be the most usual performance for this patient during the discharge assessment period. Code of 4 chosen for toilet transfer was determined by team discussion to be the most usual performance for this patient during the discharge assessment period. Code of 4 chosen for sit to lying was determined by team discussion to be the most usual performance for this patient during the discharge assessment period. Code of 6 chosen for lying to sitting on side of bed was determined by team discussion to be the most usual performance for this patient during the discharge assessment period. Code of 4 chosen for sit to stand was determined by team discussion to be the most usual performance for this patient during the discharge assessment period.--Renetta Britt,
== END 2021-11-20 13:00 | disposition home health service (06) | DRG 560 ==
PROVIDERS: Physical Medicine & Rehabilitation Sports Medicine; Physician Assistant; ADMIT Student in an Organized Health Care Education/Training Program
DX: S72.142D Displaced intertrochanteric fracture of left femur, subsequent encounter for closed fracture with routine healing (principal); N39.0 Urinary tract infection, site not specified; E87.1 Hypo-osmolality and hyponatremia; K92.1 Melena; D62 Acute posthemorrhagic anemia; K64.9 Unspecified hemorrhoids; B96.20 Unspecified Escherichia coli [E. coli] as the cause of diseases classified elsewhere; F03.90 Unspecified dementia, unspecified severity, without behavioral disturbance, psychotic disturbance, mood disturbance, and anxiety; R26.89 Other abnormalities of gait and mobility; R91.8 Other nonspecific abnormal finding of lung field; F32.A Depression, unspecified; F41.9 Anxiety disorder, unspecified; R41.89 Other symptoms and signs involving cognitive functions and awareness; W01.0XXD Fall on same level from slipping, tripping and stumbling without subsequent striking against object, subsequent encounter; Y92.007 Garden or yard of unspecified non-institutional (private) residence as the place of occurrence of the external cause; Z73.6 Limitation of activities due to disability; Z79.891 Long term (current) use of opiate analgesic; Z79.899 Other long term (current) drug therapy; Z79.82 Long term (current) use of aspirin; Z79.2 Long term (current) use of antibiotics; Z91.51 Personal history of suicidal behavior